=== PATIENT | male | born 1940 | race African-American/Black ===

== ENCOUNTER 2016-08-19 13:46 | Observation (INO) | payer MEDICARE ==
[~2016-08-19] VITALS: Ht 175.3 cm; Wt 100.0 kg
[~2016-08-19 13:46] MED LIST: ASPI81 PO; ATOR40TA PO; LEVO50TA4 PO; LISI2.5T55 PO; METF850 PO; TERA5CAP3 PO
[2016-08-19 13:50] VITALS: BP 117/62; PULSE 84; RESP 17; TEMP 98; O2SAT 94
[2016-08-19] MEDS ORDERED: ATOR40TA16 PO (14:01)
[2016-08-19] MEDS ORDERED: ASPI1TAB69 PO (14:01)
[2016-08-19] MEDS ORDERED: METF1000 PO (14:01)
[2016-08-19] MEDS ORDERED: SODIUM CHLOR 0.9% 1000 ML INJ 1,000 ML IV ONE (14:14)
[2016-08-19] MEDS ORDERED: SODIUM CHLORIDE 0.9% FLUSH 5 ML FLUSH IVF PRN (14:15)
--- NOTE | 2016-08-19 14:27 | PD ---
HPI Chief Complaint: Syncope/Near-Syncope Time Seen by Provider: 14:18 Travel History International Travel<30 days: No Contact w/Intl Traveler<30days: No Traveled to known affect area: No History of Present Illness HPI 76-year-old male with history of diabetes presents via EMS for evaluation of syncopal event. According to the patient as well as his son who arrived at bedside shortly after my examination, the patient was stepping off of a boat onto a [place]prior to [place]. He was feeling like he had to go the bathroom and so as he was walking he became dizzy and tripped on a step. As he was sitting on the ground he had a brief episode of loss of consciousness lasting for a few seconds according to the son who witnessed it. There was no seizure activity. He now feels normal. He has not had any episodes of chest pain or shortness of breath, headache. He is on no blurred vision, abdominal pain, nausea or vomiting. According to the chart review the patient was seen here after a syncopal event on July 08. She was discharged to follow-up with his primary care physician is Dr. Gross. According to his son he did have a Holter monitor which did not reveal any abnormal findings. No other complaints. PFSH Past Medical History High Cholesterol: Yes Diabetes: Yes Patient Takes Glucophage: Yes (08/19/16 0700) Diminished Hearing: No GERD: Yes Genitourinary: Yes (PROSTATE ENLARGEMENT) Kidney Stones: Yes (LT.) Tetanus Vaccination: Unknown Influenza Vaccination: Yes ?: Not Past Surgical History Surgical History: No Previous Surgery Social History Alcohol Use: No Tobacco Use: No Substance Use: No Allergies-Medications (Allergen,Severity, Reaction): Coded Allergies: No Known Allergies (Verified , 08/19/16) Reported Meds & Prescriptions Reported Meds & Active Scripts Active Reported Metformin (Metformin HCl) 1,000 Mg Tab 1,000 Mg PO BIDPC With meals Atorvastatin (Atorvastatin Calcium) 40 Mg Tab 40 Mg PO HS Aspirin 81 Mg Tabdr 81 Mg PO DAILY Review of Systems Except as stated in HPI: all other systems reviewed are Neg Physical Exam Narrative GENERAL: Well-developed well-nourished male in no acute distress, pleasant and interactive SKIN: Warm and dry. Abrasions are noted to the left hand, left elbow and left knee. HEAD: Atraumatic. Normocephalic. EYES: Pupils equal and round. No scleral icterus. No injection or drainage. ENT: No nasal bleeding or discharge. Mucous membranes pink and moist. NECK: Trachea midline. No JVD. CARDIOVASCULAR: Regular rate and rhythm. No murmur appreciated. RESPIRATORY: No accessory muscle use. Clear to auscultation. Breath sounds equal bilaterally. GASTROINTESTINAL: Abdomen soft, non-tender, nondistended. MUSCULOSKELETAL: Abrasions as noted above with no obvious bony deformity and no bony tenderness to palpation. Full range of motion of the upper and lower extremities. NEUROLOGICAL: Awake and alert. No obvious cranial nerve deficits. Motor grossly within normal limits. Normal speech. PSYCHIATRIC: Appropriate mood and affect; insight and judgment normal. Data Data Last Documented VS Vital Signs Date Time Temp Pulse Resp B/P Pulse Ox O2 Delivery O2 Flow Rate FiO2 08/19/16 15:12 98 Room Air 08/19/16 15:12 79 16 130/73 08/19/16 13:50 98.0 Orders Electrocardiogram (08/19/16 ) Electrocardiogram (08/19/16 14:14) Basic Metabolic Panel (Bmp) (08/19/16 14:14) Complete Blood Count With Diff (08/19/16 14:14) Magnesium (Mg) (08/19/16 14:14) Ckmb (Isoenzyme) Profile (08/19/16 14:14) Troponin I (08/19/16 14:14) Ct Brain W/O Iv Contrast(Rout) (08/19/16 14:14) Ecg Monitoring (08/19/16 14:14) Iv Access Insert/Monitor (08/19/16 14:14) Oximetry (08/19/16 14:14) Sodium Chloride 0.9% Flush (Ns Flush) (08/19/16 14:15) Sodium Chlor 0.9% 1000 Ml Inj (Ns 1000 M (08/19/16 14:14) CKMB (08/19/16 14:19) CKMB% (08/19/16 14:19) Labs Laboratory Tests Test 08/19/16 14:19 White Blood Count 7.8 TH/MM3 Red Blood Count 4.29 MIL/MM3 Hemoglobin 13.4 GM/DL Hematocrit 39.9 % Mean Corpuscular Volume 92.8 FL Mean Corpuscular Hemoglobin 31.3 PG Mean Corpuscular Hemoglobin 33.7 % Concent Red Cell Distribution Width 13.4 % Platelet Count 295 TH/MM3 Mean Platelet Volume 8.6 FL Neutrophils (%) (Auto) 26.8 % Lymphocytes (%) (Auto) 51.1 % Monocytes (%) (Auto) 11.1 % Eosinophils (%) (Auto) 10.2 % Basophils (%) (Auto) 0.8 % Neutrophils # (Auto) 2.1 TH/MM3 Lymphocytes # (Auto) 4.0 TH/MM3 Monocytes # (Auto) 0.9 TH/MM3 Eosinophils # (Auto) 0.8 TH/MM3 Basophils # (Auto) 0.1 TH/MM3 CBC Comment DIFF FINAL Differential Comment Sodium Level 141 MEQ/L Potassium Level 4.1 MEQ/L Chloride Level 104 MEQ/L Carbon Dioxide Level 26.4 MEQ/L Anion Gap 11 MEQ/L Blood Urea Nitrogen 13 MG/DL Creatinine 1.16 MG/DL Estimat Glomerular Filtration 75 ML/MIN Rate Random Glucose 129 MG/DL Calcium Level 9.4 MG/DL Magnesium Level 1.8 MG/DL Total Creatine Kinase 289 U/L Creatine Kinase MB 1.4 NG/ML Troponin I LESS THAN 0.02 NG/ML MDM Medical Decision Making Medical Screen Exam Complete: Yes Emergency Medical Condition: Yes Medical Record Reviewed: Yes Interpretation(s) EKG sinus rhythm no evidence of WPW, LVH, Brugada, heart block CT brain negative CBC unremarkable BMP unremarkable, CK and troponin are negative Differential Diagnosis Arrhythmia, electrolyte abnormality, orthostatic hypotension, vasovagal reaction , POTS syndrome, obstructive cardiomyopathy Narrative Course 76-year-old male presents after a witnessed syncopal event. This is his second syncopal event in the past 2 months and likely the patient will require observation for further evaluation. Discussed with Dr. Poe who is agreeable with admission. Procedures EKG Prior to Arrival: Yes Diagnosis Primary Impression: Syncope Qualified Code: R55 - Syncope, unspecified syncope type Admitting Information Admitting Physician Requests: Observation Tylor Penn Aug 19, 2016 14:27
[2016-08-19 14:34] LABS: AUTOMATED NEUTROPHIL # 2.1 TH/MM3 (1.8-7.7); BASOPHIL # 0.1 TH/MM3 (0-0.2); BASOPHIL % 0.8 % (0.0-2.0); EOSINOPHIL # 0.8 TH/MM3 (0-0.4); EOSINOPHIL % 10.2 % (0.0-4.0); HEMATOCRIT 39.9 % (39.0-51.0); HEMO FLAGS DIFF FINAL; LYMPH % 51.1 % (9.0-44.0); MEAN CELL VOLUME 92.8 FL (80.0-100.0); MEAN CORPUSCULAR HEMOGLOBIN 31.3 PG (27.0-34.0); MEAN CORPUSCULAR HGB CONC 33.7 % (32.0-36.0); MONO % 11.1 % (0.0-8.0); NEUT % 26.8 % (16.0-70.0); PLATELET COUNT 295 TH/MM3 (150-450); RED BLOOD COUNT 4.29 MIL/MM3 (4.50-5.90); RED CELL DISTRIBUTION WIDTH 13.4 % (11.6-17.2); WHITE BLOOD COUNT 7.8 TH/MM3 (4.0-11.0)
[2016-08-19 14:54] LABS: ANION GAP 11 MEQ/L (5-15); BICARBONATE 26.4 MEQ/L (21.0-32.0); BLOOD UREA NITROGEN 13 MG/DL (7-18); CHLORIDE 104 MEQ/L (98-107); GLOMERULAR FILTRATION RATE 75 ML/MIN (>89); MAGNESIUM 1.8 MG/DL (1.5-2.5); POTASSIUM 4.1 MEQ/L (3.5-5.1); SODIUM (NA) 141 MEQ/L (136-145)
[2016-08-19 14:55] LABS: CREATINE KINASE 289 U/L (39-308)
[2016-08-19 15:07] LABS: CKMB 1.4 NG/ML (0.5-3.6)
[2016-08-19 15:12] VITALS: BP 130/73; PULSE 79; RESP 16; O2SAT 98
--- NOTE | 2016-08-19 15:22 | PD ---
Data Data Last Documented VS Vital Signs Date Time Temp Pulse Resp B/P Pulse Ox O2 Delivery O2 Flow Rate FiO2 08/19/16 15:12 98 Room Air 08/19/16 15:12 79 16 130/73 08/19/16 13:50 98.0 Orders Electrocardiogram (08/19/16 ) Electrocardiogram (08/19/16 14:14) Basic Metabolic Panel (Bmp) (08/19/16 14:14) Complete Blood Count With Diff (08/19/16 14:14) Magnesium (Mg) (08/19/16 14:14) Ckmb (Isoenzyme) Profile (08/19/16 14:14) Troponin I (08/19/16 14:14) Ct Brain W/O Iv Contrast(Rout) (08/19/16 14:14) Ecg Monitoring (08/19/16 14:14) Iv Access Insert/Monitor (08/19/16 14:14) Oximetry (08/19/16 14:14) Sodium Chloride 0.9% Flush (Ns Flush) (08/19/16 14:15) Sodium Chlor 0.9% 1000 Ml Inj (Ns 1000 M (08/19/16 14:14) CKMB (08/19/16 14:19) CKMB% (08/19/16 14:19) Labs Laboratory Tests Test 08/19/16 14:19 White Blood Count 7.8 TH/MM3 Red Blood Count 4.29 MIL/MM3 Hemoglobin 13.4 GM/DL Hematocrit 39.9 % Mean Corpuscular Volume 92.8 FL Mean Corpuscular Hemoglobin 31.3 PG Mean Corpuscular Hemoglobin 33.7 % Concent Red Cell Distribution Width 13.4 % Platelet Count 295 TH/MM3 Mean Platelet Volume 8.6 FL Neutrophils (%) (Auto) 26.8 % Lymphocytes (%) (Auto) 51.1 % Monocytes (%) (Auto) 11.1 % Eosinophils (%) (Auto) 10.2 % Basophils (%) (Auto) 0.8 % Neutrophils # (Auto) 2.1 TH/MM3 Lymphocytes # (Auto) 4.0 TH/MM3 Monocytes # (Auto) 0.9 TH/MM3 Eosinophils # (Auto) 0.8 TH/MM3 Basophils # (Auto) 0.1 TH/MM3 CBC Comment DIFF FINAL Differential Comment Sodium Level 141 MEQ/L Potassium Level 4.1 MEQ/L Chloride Level 104 MEQ/L Carbon Dioxide Level 26.4 MEQ/L Anion Gap 11 MEQ/L Blood Urea Nitrogen 13 MG/DL Creatinine 1.16 MG/DL Estimat Glomerular Filtration 75 ML/MIN Rate Random Glucose 129 MG/DL Calcium Level 9.4 MG/DL Magnesium Level 1.8 MG/DL Total Creatine Kinase 289 U/L Creatine Kinase MB 1.4 NG/ML Troponin I LESS THAN 0.02 NG/ML MDM Supervised Visit with MORALES: Yes Narrative Course I, Dr. Petersen, have reviewed the advance practice practioner's documentation and am in agreement, met with the patient face to face, made the diagnosis, and the medical decision making was done by me. *My assessment and Findings: 76-year-old male diabetic here with complaint of syncopal episode. Patient has history of syncope approximately one month ago, seen in the ER and recommended admission but patient declined. He had outpatient Holter 24 hours that was negative. In the interim he's felt okay until today when he had a couple episodes 2 with lightheadedness, nauseous. No chest pain shortness of breath or palpitations, headache. Patient is improved and asymptomatic at this time. Regular rate and rhythm, clear to auscultation bilaterally. Differential includes arrhythmia, electrolyte abnormality, symptomatic anemia, ACS. Twelve-lead EKG shows sinus rhythm without notable ST abnormalities, normal intervals. Laboratory workup unremarkable. Will obtain head CT and admitted for telemetry and serial cardiac enzymes. Diagnosis Primary Impression: Syncope Qualified Code: R55 - Syncope, unspecified syncope type Cherelle Petersen MD Aug 19, 2016 15:22
--- NOTE | 2016-08-19 15:51 | RADRPT ---
EXAM DATE/TIME: 08/19/2016 15:39 [facility] COMPARISON: No previous studies available for comparison. INDICATIONS : Syncopal episode today. RADIATION DOSE: 56.77 CTDIvol (mGy) MEDICAL HISTORY : Renal calculi. Diabetes SURGICAL HISTORY : None. ENCOUNTER: Initial ACUITY: 1 day PAIN SCALE: 0/10 LOCATION: cranial TECHNIQUE: Multiple contiguous axial images were obtained of the head. Using automated exposure control and adj ustment of the mA and/or kV according to patient size, radiation dose was kept as low as reasonably a chievable to obtain optimal diagnostic quality images. FINDINGS: CEREBRUM: The ventricles are normal for age. No evidence of midline shift, mass lesion, hemorrhage or acute in farction. No extra-axial fluid collections are seen. POSTERIOR FOSSA: The cerebellum and brainstem are intact. The 4th ventricle is midline. The cerebellopontine angle i s unremarkable. EXTRACRANIAL: The visualized portion of the orbits is intact. SKULL: The calvaria is intact. No evidence of skull fracture. CONCLUSION: No acute intracranial abnormality demonstrated. Jamar Duffy MD on August 19, 2016 at 15:49 Board Certified Radiologist. This report was verified electronically.
--- NOTE | 2016-08-19 17:05 | HHI.HP ---
HPI Service [facility] Hospitalists Primary Care Physician Simi Gross Jr, MD Admission Diagnosis Syncope Chief Complaint: fall Travel History International Travel<30 Days: No Contact w/Intl Traveler <30 Da: No Traveled to Known Affected Are: No History of Present Illness Pt is 76 yo with dm and copd broght to hospital after fall getting off boat. Pt and family say last year he was sitting in mustafa chair, developed nausea, the passed out and reportedly was drooling after losing conciousness. He was evaluated but refused admission at that time. Today he got off of a boat and while walking up the steps apparently took a misstep and fell. No head trauma or LOC at that time. he has abrasions over knee/elbow/hand. When attempting to get up was very nauseated then dizzy. Family says he remained awake but in a stare...pt says he was unaware. No sz activity reported. Pt says another time the nausea and dizziness occurred and he then developed the urge to have a bm. No cp or palpitation. No headache or vision change. denies hx cad,, arrhythmia, migraine, sz, or cva. Review of Systems Other fall dizzy nausea recent hair loss over ext's Past Family Social History Past Medical History dm2 hypothyroidism hyperlipidemia copd cystoscopy bph Reported Medications metformin 1000mg bid terazosin 5mg daily lisinipril 2.5mg daily asa daily centrum atorvastatin 40mg daily spiriva albuterol fish oil levothyroxine 50mcg daily Allergies: Coded Allergies: No Known Allergies (Verified , 08/19/16) Family History nc Social History quit smoking and etoh over 20yrs ago. Physical Exam Vital Signs heart reg lung cta abd s/nt ext no edema no hair over ext no jvd or carotid bruit. Vital Signs Date Time Temp Pulse Resp B/P Pulse Ox O2 Delivery O2 Flow Rate FiO2 08/19/16 15:12 98 Room Air 08/19/16 15:12 79 16 130/73 98 Room Air 08/19/16 13:56 84 17 95 Room Air 08/19/16 13:50 98.0 84 17 117/62 94 Laboratory Laboratory Tests Test 08/19/16 14:19 White Blood Count 7.8 Red Blood Count 4.29 Hemoglobin 13.4 Hematocrit 39.9 Mean Corpuscular Volume 92.8 Mean Corpuscular Hemoglobin 31.3 Mean Corpuscular Hemoglobin 33.7 Concent Red Cell Distribution Width 13.4 Platelet Count 295 Mean Platelet Volume 8.6 Neutrophils (%) (Auto) 26.8 Lymphocytes (%) (Auto) 51.1 Monocytes (%) (Auto) 11.1 Eosinophils (%) (Auto) 10.2 Basophils (%) (Auto) 0.8 Neutrophils # (Auto) 2.1 Lymphocytes # (Auto) 4.0 Monocytes # (Auto) 0.9 Eosinophils # (Auto) 0.8 Basophils # (Auto) 0.1 CBC Comment DIFF FINAL Differential Comment Sodium Level 141 Potassium Level 4.1 Chloride Level 104 Carbon Dioxide Level 26.4 Anion Gap 11 Blood Urea Nitrogen 13 Creatinine 1.16 Estimat Glomerular Filtration 75 Rate Random Glucose 129 Calcium Level 9.4 Magnesium Level 1.8 Total Creatine Kinase 289 Creatine Kinase MB 1.4 Troponin I LESS THAN 0.02 Result Diagram: 08/19/16 1419 08/19/16 1419 Assessment and Plan Problem List: (1) Syncope Status: Acute Plan: Pt had trip and fall today. Then had an episode of staring and unresponsiveness after feeling nauseated. Last year had nausea in mustafa chair and then syncope. Could be vasovagal after nausea. Only reason I have for nausea was that he struck his knee/arm the stood up quickly becoming nauseated/dizzy.. No abdomen pain per history. He has some minor abrasions of upper/lower ext's from the fall today Doesn't sound like orthostasis. He is on terazosin. check orthostatic ivf tele/echo/fan ssi. monitor bg check tsh/vitamins abnormal cbc/diff has been noted for yrs ...smear ordered. wound care. (2) DM (diabetes mellitus) Status: Chronic Plan: home meds ssi (3) COPD (chronic obstructive pulmonary disease) Status: Chronic Plan: inhaler (4) BPH (benign prostatic hyperplasia) Status: Chronic Plan: cont terazosin (5) Hypothyroid Status: Chronic Plan: check tft Problem Qualifiers (1) Syncope: Qualified Code: R55 - Syncope, unspecified syncope type Lars Baker MD Aug 19, 2016 17:05
[2016-08-19] MEDS: metFORMIN HCL 500 MG TAB PO SCH (18:17)
[2016-08-19 18:42] VITALS: BP 133/80; PULSE 80; RESP 16; O2SAT 100
[2016-08-19 20:36] LABS: FREE T4 1.15 NG/DL (0.76-1.46)
[2016-08-19] MEDS ORDERED: ATORVASTATIN 40 MG TAB PO SCH (21:00)
[2016-08-19] MEDS: INSULIN ASPART SUPPLEMENTAL SCALE SQ SCH (21:00)
[2016-08-19] MEDS ORDERED: TERAZOSIN HCL 5 MG CAP PO SCH (21:00)
[2016-08-19 21:56] VITALS: BP_SYST 132; BP_SYST 171; BP_SYST 177; BP_DIAS 72; BP_DIAS 78; BP_DIAS 84; PULSE 82; RESP 21; TEMP 98.7; O2SAT 98
[2016-08-20] VITALS (7 sets, daily range): BP systolic 119–142; BP diastolic 60–78; PULSE 73–104; RESP 20–21; TEMP 96.9–98.4; O2SAT 95–98
[2016-08-20 05:52] LABS: BICARBONATE 25.1 MEQ/L (21.0-32.0); MAGNESIUM 1.9 MG/DL (1.5-2.5); POTASSIUM 4.3 MEQ/L (3.5-5.1)
[2016-08-20] MEDS ORDERED: LEVOTHYROXINE SODIUM 50 MCG TAB PO SCH (06:00)
[2016-08-20] MEDS: INSULIN ASPART SUPPLEMENTAL SCALE SQ SCH ×2 (06:55→11:00)
[2016-08-20] MEDS: metFORMIN HCL 500 MG TAB PO SCH (09:00)
[2016-08-20] MEDS ORDERED: ASPIRIN EC 81 MG TABEC PO SCH (09:00)
[2016-08-20] MEDS ORDERED: LISINOPRIL 5 MG TAB PO SCH (09:00)
[2016-08-20] MEDS ORDERED: TIOTROPIUM BROMIDE 18 MCG INH INH SCH (09:00)
[2016-08-20] MEDS ORDERED: REGADENOSON INJ 0.4 MG/5 ML SYR ONE (12:54)
--- NOTE | 2016-08-20 14:27 | HHI.PR ---
Subjective Remarks no dizziness overnight. eager for d/c Objective Vitals heart reg lung cta abd s/nt ext no edema Vital Signs Date Time Temp Pulse Resp B/P Pulse Ox O2 Delivery O2 Flow Rate FiO2 08/20/16 11:29 97.4 77 20 125/73 98 08/20/16 08:10 96.9 83 20 122/68 95 08/20/16 07:00 81 08/20/16 05:10 98.4 81 21 119/64 98 08/20/16 00:40 73 08/20/16 00:16 98.4 86 21 128/60 98 08/19/16 21:56 98.7 82 21 132/72 98 171/84 177/78 08/19/16 18:42 80 16 133/80 100 Room Air 08/19/16 15:12 98 Room Air 08/19/16 15:12 79 16 130/73 98 Room Air 08/19/16 08/19/16 08/20/16 15:00 23:00 07:00 Intake Total 480 ml Balance 480 ml Intake Oral 480 ml Result Diagram: 08/19/16 1419 08/20/16 0426 A/P Problem List: (1) Syncope Status: Acute Plan: Pt had trip and fall on stairs. abrasions to knee/arm Then stood up quickly becoming nauseated/dizzy. Then had 2 episode of staring and unresponsiveness after feeling nauseated. Could be vasovagal after nausea. No abdomen pain per history. He has some minor abrasions of upper/lower ext's from the fall today Doesn't sound like orthostasis. He is on terazosin. checked orthostatic and negative ivf given tele//lexiscan....no arrhythmia overnight. fan negative for ischemia ssi. monitored bg. no hypoglycemia overnight. checked tsh/vitamins and ok. abnormal cbc/diff has been noted for yrs...f/u pcp. ...smear ordered and pending. wound care. Long talk with pt about my impressions above and results of testing. will give him copy of test results. also a copy of cbc's over the yrs to give to pcp..he might benefit from hematology consult to be determined by pcp. (2) DM (diabetes mellitus) Status: Chronic Plan: home meds ssi (3) COPD (chronic obstructive pulmonary disease) Status: Chronic Plan: inhaler (4) BPH (benign prostatic hyperplasia) Status: Chronic Plan: cont terazosin (5) Hypothyroid Status: Chronic Plan: check tft Problem Qualifiers (1) Syncope: Qualified Code: R55 - Syncope, unspecified syncope type Lars Baker MD Aug 20, 2016 14:27
--- NOTE | 2016-08-20 14:47 | RADRPT ---
EXAM DATE/TIME: 08/20/2016 12:30 [facility] COMPARISON: No previous studies available for comparison. INDICATIONS : Patient fall with dizziness and nausea. Syncope. Coronary artery disease. DOSE: 30.2 mCi Tc99m Myoview at stress. 10.1 mCi Tc99m Myoview at rest. 0.4 mg Lexiscan STRESS SYMPTOMS: Shortness of breath. EJECTION FRACTION: 69% MEDICAL HISTORY : Chronic obstructive pulmonary disease. Diabetes mellitus type 2. Hypothyroidism. SURGICAL HISTORY : None. ENCOUNTER: Initial ACUITY: 1 day PAIN SCALE: 1/10 LOCATION: Midsternal chest TECHNIQUE: The patient underwent pharmacologic stress with infusion of prescribed dose. Continuous ECG tracing was monitored during stress. Gated SPECT imaging was performed after stress and conventional SPECT i maging was performed at rest. The examination was performed on a SPECT/CT scanner, both attenuation and non-corrected datasets were reviewed. FINDINGS: DISTRIBUTION: The maximum perfused segment at stress is in the septal wall. PERFUSION STUDY: The pattern of perfusion at stress is within normal limits. GATED STUDY: There is intact wall motion and thickening without hypokinetic or dyskinetic segments. CONCLUSION: No areas of ischemia are seen. RISK CATEGORY: Low (<1% Annual Mortality Rate) Jamar Dick MD on August 20, 2016 at 14:45 Board Certified Radiologist. This report was verified electronically.
[2016-08-20] MEDS ORDERED: LISI2.5T3 PO (15:19)
[2016-08-20] MEDS ORDERED: SPIRCAP INH (15:19)
[2016-08-20] MEDS ORDERED: TERA5CAP3 PO (15:19)
[2016-08-20] MEDS ORDERED: LEVO50TA4 PO (15:20)
--- NOTE | 2016-08-20 15:21 | HHI.DCPOC ---
Discharge Care Plan Diagnosis: (1) Vasovagal episode (2) DM (diabetes mellitus) (3) BPH (benign prostatic hyperplasia) (4) COPD (chronic obstructive pulmonary disease) (5) Hypothyroid Goals to Promote Your Health * To prevent worsening of your condition and complications * To maintain your health at the optimal level Directions to Meet Your Goals Take your medications as prescribed Follow your dietary instruction Follow activity as directed Keep your appointments as scheduled Take your immunizations and boosters as scheduled If your symptoms worsen call your PCP, if no PCP go to Urgent Care Center or Emergency Room Smoking is Dangerous to Your Health. Avoid second hand smoke Call the 24-hour hour crisis hotline for domestic abuse at Lars Baker MD Aug 20, 2016 15:21
--- NOTE | 2016-08-20 19:55 | EKG ---
Date Performed: 08/19/2016 Time Performed: 13:58:03 PTAGE: 76 years EKG: Sinus rhythm Compared to prior tracing no significant change NORMAL ECG PREVIOUS TRACING : 07/08/2015 13.02 DOCTOR: Lars Kevin Interpretating Date/Time 08/20/2016 19:54:23
== END 2016-08-20 16:58 | disposition home or self-care (01) ==
LOC: NEPA 13:46 → NEDA 16:19 → NEPFCDU 20:31
PROVIDERS: ADMIT Hospitalist; ATTEND Hospitalist
DX: R55 Syncope and collapse (principal); S80.212A Abrasion, left knee, initial encounter; S80.211A Abrasion, right knee, initial encounter; S40.812A Abrasion of left upper arm, initial encounter; S40.811A Abrasion of right upper arm, initial encounter; E11.9 Type 2 diabetes mellitus without complications; E78.00 Pure hypercholesterolemia, unspecified; K21.9 Gastro-esophageal reflux disease without esophagitis; Z79.84 Long term (current) use of oral hypoglycemic drugs; Z79.82 Long term (current) use of aspirin; E03.9 Hypothyroidism, unspecified; E78.5 Hyperlipidemia, unspecified; J44.9 Chronic obstructive pulmonary disease, unspecified; N40.0 Benign prostatic hyperplasia without lower urinary tract symptoms; Z79.51 Long term (current) use of inhaled steroids; Z87.891 Personal history of nicotine dependence; V92.09XA Drowning and submersion due to fall off unspecified watercraft, initial encounter
CPT/HCPCS: 70450; 78452; 80048; 82550; 82552; 82607; 82948; 83735; 84100; 84439; 84443; 84484; 85025; 85060; 93005; 93017; 96360; 96361; 97162; 99285; A9502; G0378; J2785; J7030